=== PATIENT | male | born 1955 | race Caucasian/White ===

== ENCOUNTER → 2021-02-03 | Outpatient (CLI) | payer OTHER ==
--- NOTE | 2021-02-03 12:13 | REP ---
INDICATION: DYSPNEA. COMPARISON: 08/08/2006 TECHNIQUE: PA and lateral FINDINGS: The lung phipps are hyperexpanded status quo. The cardiomediastinal silhouette is again seen to be within normal limits. Lung phipps are clear. No acute patchy parenchymal opacities or pleural effusions have developed. The osseous structures are unchanged. IMPRESSION: There is no acute cardiopulmonary disease. <Electronically signed by Marcos Oakley > 02/03/21 2405
== END ==
LOC: M WUC 11:59
PROVIDERS: ATTEND Physician Assistant
DX: R06.00 Dyspnea, unspecified (principal)

== ENCOUNTER → 2021-08-12 | Outpatient (CLI) | payer MEDICARE, OTHER | LOC: M LAB 10:51 | PROVIDERS: ATTEND Nurse Practitioner Family | DX: E87.5 Hyperkalemia (principal) ==

== ENCOUNTER → 2023-04-17 | Outpatient (CLI) | payer MEDICARE, MEDICAID ==
[~2023-04-17] MED LIST: ALBU8.5H; ASPI-226; FERR325T19; FLUT1INH3; TRAD5TAB; VITA200016
== END ==
LOC: M PLAIMG 14:06
PROVIDERS: ATTEND Internal Medicine Pulmonary Disease
DX: R91.8 Other nonspecific abnormal finding of lung field (principal)

== ENCOUNTER → 2023-05-01 | Outpatient (CLI) | payer MEDICARE, MEDICAID | LOC: M WUC 09:04 | PROVIDERS: ATTEND Nurse Practitioner Adult Health | DX: M25.511 Pain in right shoulder (principal) ==